=== PATIENT | female | born 1955 | race Hispanic/Latino ===

== ENCOUNTER 2023-03-26 19:48 | Emergency (ER) | payer MEDICARE ==
[~2023-03-26] VITALS: Ht 157.5 cm; Wt 68.9 kg
[~2023-03-26 19:48] MED LIST: ASPIRIN81 MG PO; FUROSEMIDE20 MG PO; GLIMEPIRIDE4 MG PO; JARDIANCE25 MG PO; LEVOFLOXACIN500 MG PO; LISINOPRIL-HCT1 EACH PO; ULTRAM 50MG50 MG PO
[2023-03-26] MEDS ORDERED: IBUPROFEN 200 MG TAB PO ONE (20:15)
[2023-03-26] MEDS ORDERED: CEFTRIAXONE 1 GM VIAL IM ONE (20:15)
[2023-03-26] MEDS ORDERED: PROBIOTIC & AC1 EACH PO (20:23)
[2023-03-26] MEDS ORDERED: CEFDINIR300 MG PO (20:23)
[2023-03-26] MEDS ORDERED: IBUPROFEN200 MG PO (20:23)
[2023-03-26] MEDS ORDERED: PYRIDIUM100 MG PO (20:23)
[2023-03-26] MEDS ORDERED: IBUPROFEN 200 MG TAB ONE (20:26)
[2023-03-26] MEDS ORDERED: CEFTRIAXONE 1 GM VIAL ONE (20:26)
[2023-03-26 21:28] VITALS: BP 142/61; PULSE 88; RESP 18; TEMP 98.6; O2SAT 99
[2023-03-27] MEDS ORDERED: PIPERACILLIN/TAZOBACTAM 3.375 GM VIAL ONE (02:10)
== END 2023-03-26 21:28 | disposition home or self-care (01) ==
LOC: FSED 19:51
DX: R30.0 Dysuria (principal); N39.0 Urinary tract infection, site not specified; N81.10 Cystocele, unspecified; I10 Essential (primary) hypertension; E11.9 Type 2 diabetes mellitus without complications; E78.5 Hyperlipidemia, unspecified
CPT/HCPCS: 81003; 99282; J0696; J2543

== ENCOUNTER 2024-05-29 22:25 | Inpatient (IN) | payer MEDICARE ==
[~2024-05-29] VITALS: Ht 157.5 cm; Wt 88.9 kg
[~2024-05-29 22:25] MED LIST changes: +CEFDINIR300 MG PO; +IBUPROFEN200 MG PO; +PROBIOTIC & AC1 EACH PO; +PYRIDIUM100 MG PO
[2024-05-29 22:36] VITALS: PULSE 103; RESP 20; TEMP 98.7
[2024-05-29] MEDS: SODIUM CHLORIDE 0.9% 1000ML 1,000 ML IV ONE (23:03)
[2024-05-29 23:04] LABS: BASOPHILS % 0.3 % (0.0-1.0); EOSINOPHILS # (AUTO) 0.1 (0.0-0.4); EOSINOPHILS % 0.6 % (0.0-6.0); HEMATOCRIT 39.6 % (34.2-44.1); HEMOGLOBIN 12.1 g/dL (12.0-16.0); LYMPHOCYTES # (AUTO) 1.3 (1.0-3.2); MEAN CORPUSCULAR HEMOGLOBIN 30.6 pg (28-32); MEAN CORPUSCULAR HGB CONC 30.6 g/dL (31-35); MEAN CORPUSCULAR VOLUME 100.3 fL (81-99); MONOCYTES # (AUTO) 0.5 (0.2-0.8); MONOCYTES % 4.2 % (4.4-11.3); NEUTROPHILS # (AUTO) 10.6 (2.1-6.9); NEUTROPHILS % 84.3 % (38.7-80.0); PLATELET COUNT 299 x10e3/uL (140-360); RED BLOOD COUNT 3.95 x10e6/uL (3.6-5.1); RED CELL DISTRIBUTION WIDTH 14.7 % (11.7-14.4); WHITE BLOOD COUNT 12.62 x10e3/uL (4.8-10.8)
[2024-05-29] MEDS: ONDANSETRON HCL INJ 2MG/ML 2ML 2 MG/ML VIAL IV STA (23:04)
[2024-05-29] MEDS: Morphine 4mg INJECTION 4 MG/ML INJ IV ONE (23:04)
[2024-05-29 23:21] LABS: ALBUMIN 4.2 g/dL (3.5-5.0); ANION GAP 19.8 mmol/L (8-16); BILIRUBIN,TOTAL 0.6 mg/dL (0.2-1.2); CALCIUM 10.6 mg/dL (8.4-10.2); CREATININE, SERUM 1.8 mg/dL (0.57-1.11); POTASSIUM 4.8 mmol/L (3.5-5.1); TOTAL PROTEIN 8.5 g/dL (6.5-8.1)
[2024-05-29 23:24] LABS: CLARITY,URINE CLEAR (CLEAR); COLOR,URINE YELLOW (YELLOW); LEUKOCYTE ESTERASE ,URINE TRACE (NEGATIVE); NITRITE,URINE NEGATIVE (NEGATIVE); PH,URINE 6 (5 - 7)
[2024-05-29 23:25] LABS: BILIRUBIN,URINE NEGATIVE (NEGATIVE); GLUCOSE, URINE 500 (NEGATIVE); KETONES,URINE TRACE (NEGATIVE); PROTEIN,URINE DIPSTICK TRACE (NEGATIVE); URINE UROBILINOGEN 0.2 mg/dL (0.2 - 1)
[2024-05-29 23:29] LABS: BACTERIA,URINE MANY /HPF; EPITHELIAL CELLS,URINE MODERATE /LPF; RENAL EPITHELIAL CELLS,URINE FEW
[2024-05-29 23:41] LABS: TROPONIN I 0.002 ng/mL (0-0.300)
[2024-05-30] VITALS (11 sets, daily range): BP systolic 120–146; BP diastolic 55–72; PULSE 64–94; RESP 17–20; TEMP 97.7–98.4; O2SAT 94–100
[2024-05-30] MEDS ORDERED: BENZOCAINE 20% SPR 60 ML CAN ONE (00:17)
[2024-05-30] MEDS: BENZOCAINE/TETRACAINE/BUTAMBEN AERO SPRAY 56 GM CAN TOP ONE (00:45)
[2024-05-30] MEDS: SODIUM CHLORIDE 0.9% 1000ML 1,000 ML IV SCH (00:45)
[2024-05-30] MEDS ORDERED: ONDANSETRON HCL INJ 2MG/ML 2ML 2 MG/ML VIAL IV PRN ×2 (02:35→13:45)
[2024-05-30] MEDS ORDERED: HYDRALAZINE HCL 20 MG/ML VIAL IV PRN (02:45)
[2024-05-30] MEDS ORDERED: ALBUTEROL SULF 0.083% NEB SOLN 3 ML NEB NEB PRN (02:45)
[2024-05-30] MEDS ORDERED: Morphine 4mg INJECTION 4 MG/ML INJ IV PRN (02:45)
[2024-05-30] MEDS ORDERED: JANUVIA50 MG PO (03:20)
[2024-05-30] MEDS ORDERED: ARIMIDEX1 MG PO (03:20)
[2024-05-30] MEDS ORDERED: PIOGLITAZONE HC30 MG PO (03:20)
[2024-05-30] MEDS ORDERED: ALENDRONATE SOD70 MG PO (03:20)
[2024-05-30] MEDS ORDERED: ATORVASTATIN CA20 MG PO (03:20)
[2024-05-30] MEDS ORDERED: LISINOPRIL5 MG PO (03:20)
[2024-05-30] MEDS ORDERED: METFORMIN HCL500 MG PO (03:20)
[2024-05-30] MEDS: INSULIN LISPRO 100 UNIT/1 ML 3ML VIAL SQ SCH (07:30)
[2024-05-30] MEDS ORDERED: PROPOFOL IV EMULSION 10 MG/ML 20 ML VIAL ONE (12:12)
[2024-05-30] MEDS ORDERED: LIDOCAINE HCL 2% LOCAL INJ 5 ML SDV VIAL INJ ONE (12:13)
[2024-05-30] MEDS ORDERED: ROCURONIUM BROMIDE 1 ML IV ONE (12:13)
[2024-05-30] MEDS ORDERED: FENTANYL CITRATE/PF 100MCG/2 ML INJ ONE (12:14)
[2024-05-30] MEDS ORDERED: ONDANSETRON HCL INJ 2MG/ML 2ML 2 MG/ML VIAL ONE (13:04)
[2024-05-30] MEDS ORDERED: METOCLOPRAMIDE HCL 10 MG/2ML VIAL ONE (13:04)
[2024-05-30] MEDS ORDERED: ACETAMINOPHEN 1000 MG/100 ML 100 ML IV ONE (13:12)
[2024-05-30] MEDS ORDERED: SEVOFLURANE INHAL SOLN 250 ML PEN BTL ONE (13:25)
[2024-05-30] MEDS ORDERED: SUGAMMADEX SODIUM 200 MG/2 ML VIAL IV ONE (13:25)
[2024-05-30] MEDS: SODIUM CHLORIDE 0.9% 250ML IRRIG IR SCH (13:45)
[2024-05-30] MEDS ORDERED: ACETAMINOPHEN 1000 MG/100 ML IV PRN (13:45)
[2024-05-30] MEDS ORDERED: DIPHENHYDRAMINE HCL INJ 50 MG/ML VIAL IM PRN (13:45)
[2024-05-30] MEDS ORDERED: KETOROLAC TROMETHAMINE 30 MG/ML VIAL IV PRN (13:45)
[2024-05-30] MEDS ORDERED: NALOXONE HCL INJ 0.4 MG/ML AMP IV PRN (13:45)
[2024-05-30] MEDS: MORPHINE SULFATE 1 MG/ML 30ML PCA IV PRN (14:10)
[2024-05-30] MEDS: DEXTROSE 50% SYRINGE 50 ML IV PRN (21:04)
[2024-05-31] VITALS (11 sets, daily range): BP systolic 124–142; BP diastolic 51–66; PULSE 74–84; RESP 16–20; TEMP 97.4–98.6; O2SAT 93–98
[2024-05-31 07:13] LABS: BASOPHILS % 0.3 % (0.0-1.0); EOSINOPHILS # (AUTO) 0.1 (0.0-0.4); EOSINOPHILS % 1.8 % (0.0-6.0); HEMATOCRIT 38.9 % (34.2-44.1); LYMPHOCYTES # (AUTO) 1.2 (1.0-3.2); LYMPHOCYTES % 16.5 % (18.0-39.1); MEAN CORPUSCULAR HEMOGLOBIN 31.7 pg (28-32); MEAN CORPUSCULAR HGB CONC 28.3 g/dL (31-35); MEAN CORPUSCULAR VOLUME 112.1 fL (81-99); MONOCYTES # (AUTO) 0.5 (0.2-0.8); MONOCYTES % 7.1 % (4.4-11.3); NEUTROPHILS # (AUTO) 5.3 (2.1-6.9); PLATELET COUNT 218 x10e3/uL (140-360); RED BLOOD COUNT 3.47 x10e6/uL (3.6-5.1); RED CELL DISTRIBUTION WIDTH 15.6 % (11.7-14.4); WHITE BLOOD COUNT 7.15 x10e3/uL (4.8-10.8)
[2024-05-31] MEDS: DEXTROSE 50% SYRINGE 50 ML IV ONE (07:35)
[2024-05-31] MEDS: DEXTROSE 5% 250ML 250 ML IV ONE (07:36)
[2024-05-31 07:37] LABS: ALBUMIN 3.1 g/dL (3.5-5.0); ALBUMIN/GLOBULIN RATIO 0.8 (0.8-2.0); ANION GAP 13.4 mmol/L (8-16); BILIRUBIN,TOTAL 0.5 mg/dL (0.2-1.2); CALCIUM 8.4 mg/dL (8.4-10.2); CREATININE, SERUM 1.03 mg/dL (0.57-1.11); POTASSIUM 4.4 mmol/L (3.5-5.1); TOTAL PROTEIN 6.8 g/dL (6.5-8.1)
[2024-05-31 08:21] LABS: EOSINOPHILS % (MANUAL) 1 % (0-7); LYMPHOCYTES % (MANUAL) 22 % (19-48); MONOCYTES % (MANUAL) 3 % (3.4-9.0); NEUTROPHILS % (MANUAL) 74 % (40-74); PLATELET ESTIMATE ADEQUATE; PLATELET MORPHOLOGY COMMENT NORMAL; RBC MORPHOLOGY COMMENT NORMAL
[2024-06-01] VITALS (12 sets, daily range): BP systolic 125–159; BP diastolic 61–75; PULSE 73–83; RESP 16–20; TEMP 97.9–99.1; O2SAT 95–100
[2024-06-01] MEDS ORDERED: SODIUM CHLORIDE FLUSH 10 ML SYR INJ PRN (06:45)
[2024-06-01] MEDS ORDERED: HYDROCODONE/APAP 5MG-325MG TAB PO PRN (06:45)
[2024-06-02 03:10] VITALS: BP 151/75; PULSE 75; RESP 18; TEMP 98.5; O2SAT 100
[2024-06-02 05:48] LABS: BASOPHILS % 0.3 % (0.0-1.0); EOSINOPHILS # (AUTO) 0.6 (0.0-0.4); EOSINOPHILS % 8.9 % (0.0-6.0); HEMATOCRIT 35.9 % (34.2-44.1); HEMOGLOBIN 11.2 g/dL (12.0-16.0); LYMPHOCYTES # (AUTO) 1.4 (1.0-3.2); LYMPHOCYTES % 21.8 % (18.0-39.1); MEAN CORPUSCULAR HEMOGLOBIN 30.9 pg (28-32); MEAN CORPUSCULAR HGB CONC 31.2 g/dL (31-35); MEAN CORPUSCULAR VOLUME 98.9 fL (81-99); MONOCYTES # (AUTO) 0.4 (0.2-0.8); MONOCYTES % 6.5 % (4.4-11.3); NEUTROPHILS % 62.2 % (38.7-80.0); PLATELET COUNT 265 x10e3/uL (140-360); RED BLOOD COUNT 3.63 x10e6/uL (3.6-5.1); RED CELL DISTRIBUTION WIDTH 14.5 % (11.7-14.4)
[2024-06-02 06:21] LABS: ANION GAP 13.1 mmol/L (8-16); CALCIUM 9.2 mg/dL (8.4-10.2); CREATININE, SERUM 0.9 mg/dL (0.57-1.11); POTASSIUM 4.1 mmol/L (3.5-5.1)
[2024-06-02 08:18] VITALS: BP 135/72; PULSE 64; RESP 18; TEMP 97.7; O2SAT 98
[2024-06-02] MEDS: SITAGLIPTIN 100 MG TAB PO SCH (08:21)
[2024-06-02] MEDS: LISINOPRIL 2.5 MG TAB PO SCH (08:21)
[2024-06-02] MEDS: ATORVASTATIN 20 MG TAB PO SCH (08:22)
[2024-06-02] MEDS: ASPIRIN 81 MG CHEW TAB PO SCH (08:22)
[2024-06-02 10:30] VITALS: BP 135/72; PULSE 64; RESP 18; TEMP 97.7; O2SAT 98
[2024-06-02 11:33] VITALS: BP 129/60; PULSE 77; RESP 18; TEMP 98.2; O2SAT 96
== END 2024-06-02 13:18 | disposition home or self-care (01) | DRG 337 ==
LOC: ER 22:32 → ERHOLD 05-30 00:25 → MED/SURG3 05-30 01:45
PROVIDERS: ADMIT Internal Medicine Critical Care Medicine; ATTEND Internal Medicine Critical Care Medicine
PROC: 0DN80ZZ Release Small Intestine, Open Approach (ICD-10-PCS; 2024-05-30)
PROC: 0WQF0ZZ Repair Abdominal Wall, Open Approach (ICD-10-PCS; principal; 2024-05-30 12:54)
DX: K43.0 Incisional hernia with obstruction, without gangrene (principal); I10 Essential (primary) hypertension; E11.9 Type 2 diabetes mellitus without complications; K66.0 Peritoneal adhesions (postprocedural) (postinfection); E78.5 Hyperlipidemia, unspecified; Z79.82 Long term (current) use of aspirin; Z79.84 Long term (current) use of oral hypoglycemic drugs; Z87.440 Personal history of urinary (tract) infections; Z90.710 Acquired absence of both cervix and uterus; Z90.49 Acquired absence of other specified parts of digestive tract; Z85.3 Personal history of malignant neoplasm of breast
CPT/HCPCS: 36415; 74018; 74176; 80048; 80053; 81001; 82948; 83690; 84484; 85025; 93005; 94799; 99284; J2003; J2270; J2405; J2470; J2543; J2765; J7030; J7799